=== PATIENT | male | born 2000 | race American Indian/Alaskan Native ===

== ENCOUNTER 2022-07-02 13:02 | Emergency (ER) | payer MEDICAID ==
[2022-07-02] MEDS ORDERED: TETRACAINE 0.5% OPHTH SOLN 4ML OU ONE (15:50)
[2022-07-02] MEDS ORDERED: FLUORESCEIN 1 MG STRIP OP ONE (15:50)
[2022-07-02] MEDS ORDERED: HYDROcodone/ACETAMINOPHEN 5-325 MG TAB PO ONE (15:52)
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
[2022-07-02 19:52] VITALS: BP 132/76
== END 2022-07-02 19:52 | disposition home or self-care (01) ==
LOC: ED 13:02
DX: H57.11 Ocular pain, right eye (principal); G50.1 Atypical facial pain; H11.31 Conjunctival hemorrhage, right eye
CPT/HCPCS: 70480; 99284